=== PATIENT | male | born 1955 | race Caucasian/White ===

== ENCOUNTER → 2016-03-13 | Outpatient (CLI) | payer OTHER | LOC: LAB 09:51 | PROVIDERS: ATTEND Orthopaedic Surgery | DX: Z01.812 Encounter for preprocedural laboratory examination (principal); M16.12 Unilateral primary osteoarthritis, left hip | CPT/HCPCS: 36415; 86850; 86900; 86901 ==

== ENCOUNTER → 2016-03-13 | Outpatient (CLI) | payer OTHER ==
--- NOTE | 2016-03-22 17:01 | DI ---
AP PELVIS and LEFT HIP, 03/13/2016 8:51 AM: Clinical History: Arthritis of the left hip. Previous Exam: None at this facility. There is no soft tissue abnormality. The bony structures of the pelvis are normal. 2 views of the lef t hip show complete obliteration of the joint space along the superior aspect. There is sclerosis on both sides of the joint space. 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 Vascular calcifications are present in the pelvis in a pattern typical for patients who have diabetes. Readin. 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 2. The AP pelvis view is unremarkable.
== END ==
LOC: ORTHO 09:48
PROVIDERS: ATTEND Orthopaedic Surgery
DX: M16.12 Unilateral primary osteoarthritis, left hip (principal)
CPT/HCPCS: 73502

== ENCOUNTER 2016-03-14 05:51 | Inpatient (IN) | payer OTHER ==
[2016-03-14] MEDS ORDERED: ceFAZolin Inj 2gm (Premix) 50 ML IV ONE (05:59)
[2016-03-14] MEDS ORDERED: LIDOCAINE W/ SODIUM BICARB 0.5 ML SYR ONE (05:59)
[2016-03-14] MEDS ORDERED: Lactated Ringers 1,000 ML PRIMARY IV ONE ×2 (06:00→08:38)
[2016-03-14] MEDS ORDERED: Sodium Chloride 0.9% 2,000 ML ONE (06:38)
[2016-03-14] MEDS ORDERED: Sodium Chloride 0.9% 500 ML ONE ×2 (06:38→10:45)
[2016-03-14] MEDS ORDERED: HEPARIN 10,000 UNIT/1 ML ONE (06:46)
[2016-03-14] MEDS ORDERED: Gentamicin Inj 40 MG/ML VIAL ONE (06:46)
[2016-03-14] MEDS ORDERED: TRANEXAMIC ACID 1,000 MG / 10 ML VIAL ONE ×2 (07:16→07:31)
[2016-03-14] MEDS ORDERED: Sodium Chloride 0.9% 200 ML IV ONE (07:16)
[2016-03-14] MEDS ORDERED: Sodium Chloride 0.9% vial 40 ML ONE (07:17)
[2016-03-14] MEDS ORDERED: BUPivacaine Liposome/PF (Exparel) Inj 20ml vial INFIL ONE ×2 (07:17→08:50)
[2016-03-14] MEDS ORDERED: LIDOCAINE MPF 2% - 5 ML (20 MG/1 ML) ONE (07:22)
[2016-03-14] MEDS ORDERED: fentaNYL Inj 250 MCG/5 ML VIAL ONE (07:22)
[2016-03-14] MEDS ORDERED: MIDAZOLAM 5 MG/1 ML ONE (07:22)
[2016-03-14] MEDS ORDERED: ROCURONIUM 10 MG/1 ML - 5 ML VIAL IVP ONE ×2 (07:27→09:08)
[2016-03-14] MEDS ORDERED: Ketorolac Inj 30 MG, Morphine Inj 5 MG, BUPivacaine Inj 0.25% PF 150 MG SPLASH ONE ×3 (07:30)
[2016-03-14] MEDS ORDERED: LIDOCAINE HCL 2 % 10 ML JELLY URO-JECT TOPICAL ONE (08:12)
[2016-03-14] MEDS ORDERED: DEXAMETHASONE SOD PHOSPHATE 4 MG/1 ML VIAL ONE (08:21)
[2016-03-14] MEDS ORDERED: ONDANSETRON 4 MG/2 ML VIAL ONE (08:21)
[2016-03-14] MEDS ORDERED: KETOROLAC 30 MG/1 ML VIAL ONE (08:21)
[2016-03-14] MEDS ORDERED: KETAMINE 100 MG/1 ML - 5 ML ONE (08:22)
[2016-03-14] MEDS ORDERED: HYDROmorphone 2 MG/1 ML ONE (08:22)
[2016-03-14] MEDS ORDERED: PROMETHAZINE 25 MG/1 ML VIAL IM PRN (09:27)
[2016-03-14] MEDS ORDERED: HYDROmorphone 2 MG/1 ML IVP PRN (09:27)
[2016-03-14] MEDS ORDERED: NORMAL SALINE 10 ML SYRINGE FLUSH IVP PRN ×2 (09:27→12:49)
[2016-03-14] MEDS ORDERED: fentaNYL Inj 100 MCG/2 ML VIAL IVP PRN (09:27)
[2016-03-14] MEDS ORDERED: Lactated Ringers 1,000 ML PRIMARY IV SCH (09:30)
[2016-03-14] MEDS ORDERED: MORPHINE SULFATE 2 MG/1 ML IVP PRN (12:49)
[2016-03-14] MEDS ORDERED: ONDANSETRON 4 MG/2 ML VIAL IVP PRN (12:49)
[2016-03-14] MEDS ORDERED: MORPHINE SULFATE 2 MG/1 ML IV PRN (13:15)
[2016-03-14] MEDS ORDERED: MORPHINE SULFATE 10 MG/1 ML IV PRN (13:15)
[2016-03-14] MEDS ORDERED: MORPHINE SULFATE 4 MG/1 ML IV PRN (13:15)
--- NOTE | 2016-03-14 14:17 | CONSULT ---
Consult Note - Consult Consult Date: 03/14/16 Reason for Consult: PostOp Consulation : Ortho Requesting Physician: Dr. Segovia, for postoperative hypertension Primary Care Provider: NONE NONE History and Physical - History of Present Illness Date and Time of Service: 03/14/2016, 1415 Chief Complaint: Left hip pain History of Present Illness: This very pleasant 60-year-old male that has a history of hypertension and is otherwise healthy who has had left hip pain for several years. He has used Celebrex, anti-inflammatories, and Tylenol for her therapy but that has not helped. He opted for a hip replacement today. He's had bilateral knee replacements that helped with pain significantly. He had surgery today, and postoperatively, states that his hip pain is controlled. He states that he does not have any chest pain or shortness breath. His only medical issue is hypertension for which she is on a low-dose of lisinopril daily. He's been on that for about 6 months. He does not smoke or drink large amounts of alcohol. We are asked at this time to watch blood pressures and to address in terms of medications. Past Medical History Medical History: 1. Hypertension Surgical History: 1. Bilateral knee replacements. 2. Elbow bone spur. 3. Left total hip arthroplasty today. Pertinent Family History: No family history of diabetes or coronary artery disease. Past Social History: Does not smoke. Worked mostly for the guard and for the [employer] and is now retired from the . 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 He is . Has 2 children described as healthy. Drinks socially and occasionally Tobacco Use: Never Smoker Substance Use Type: None Alcohol Use: Occasionally Review of Systems - Review of Systems All Systems: Reviewed & No Additional Complaints Except as Stated (I did a 12 point review of systems and it is negative other than the history of present illness.) Medication / Allergies Home Medications: Home Medications Medication Instructions Recorded Confirmed Type Lisinopril 1 tab PO DAILY tab 02/09/16 03/14/16 History Allergies/Adverse Reactions: Allergies Allergy/AdvReac Type Severity Reaction Status Date / Time No Known Allergies Allergy Verified 03/14/16 06:16 Exam - Vitals Vital Signs: Vital Signs Temperature 97.6 F Temperature Source Temporal Artery Scan Pulse Rate [Pulse Oximeter] 79 Pulse Rate 86 Respiratory Rate 17 Blood Pressure [Left Arm] 132/85 Blood Pressure 139/84 Pulse Ox 96 Oxygen Flow Rate 2 Oxygen Delivery Method Nasal Cannula Height 5 ft 6.25 in Weight 210 lb - General General Appearance: POSITIVE: No Acute Distress, Cooperative - Head Head Exam: POSITIVE: Normal Inspection, Normocephalic, Atraumatic - Eye Eye Exam: POSITIVE: No Scleral Icterus - Neck Neck Exam: POSITIVE: Normal Inspection, No Tenderness, No Thyromegaly - Respiratory Respiratory Exam: POSITIVE: Clear to Auscultation - Bilaterally, Breathing Non Labored - Cardiovascular Cardiovascular Exam: POSITIVE: RRR, No Murmur, No Clicks, No Gallops, No Rubs, No JVD - GI/Abdominal GI/Abdominal Exam: POSITIVE: Normal Bowel Sounds, Non Tender, Non Distended, Soft - Rectal Rectal Exam: POSITIVE: Deferred - External Exam: POSITIVE: Deferred Exam: POSITIVE: Deferred, Edge Catheter in Place (Urine appears clear.) - Extremities Extremities Exam: POSITIVE: No Clubbing Present, No Edema Present, No Cyanosis Present Additional Extremities Exam Details: Left hip is dressed, dressing appears clean, dry, intact - Neurological Neurological Exam: POSITIVE: Alert, Oriented x 3, No Facial Droop, Speech Intact / Clear - Psychiatric Psychiatric Exam: POSITIVE: Normal Affect, Normal Mood - Integumentary Integumentary Exam: POSITIVE: Normal Color, Warm, Dry Results - Labs Labs - Last 24 Hours: CBC and a basic metabolic panel are ordered for tomorrow. I do not have access to his preoperative labs at this time. Assessment and Plan - Patient Problems (1) Hypertension Current Visit: Yes Status: Acute Qualifiers: Hypertension type: essential hypertension Qualified Description: Essential hypertension Qualifier Code(s): (I10) Essential (primary) hypertension (2) Status post left hip replacement Current Visit: Yes Status: Acute (3) Osteoarthritis Current Visit: Yes Status: Acute Qualifiers: Osteoarthritis location: hip Osteoarthritis type: primary Laterality: left Qualified Description: Primary osteoarthritis of left hip Qualifier Code(s): (M16.12) Unilateral primary osteoarthritis, left hip - Assessment / Plan Additional Assessment/Plan Details: At this time, I would recommend holding off on lisinopril. The patient's blood pressures are normal at this time. This medicine is known to cause perioperative hypotension and renal failure, and I think if we can hold off on it for a couple of days that would be best. DVT prophylaxis as per orthopedics. PT and OT. Pain control. It'll be our pleasure to follow this patient during his hospital stay and help advise and manage blood pressure.
[2016-03-14] MEDS: ceFAZolin Inj 2gm (Premix) 2 GM in Dextrose 1 BAG IV SCH (15:33)
[2016-03-14] MEDS: HYDROcodone-APAP 7.5 MG-325 MG TABLET PO PRN (15:34)
[2016-03-14] MEDS: Lactated Ringers 1,000 ML PRIMARY IV SCH ×2 (15:35→20:05)
--- NOTE | 2016-03-14 18:11 | ORTHO.PROG ---
Last Taken Vital Signs: Vital Signs - Last Taken Temperature 97.6 F 03/14/16 16:31 Pulse Rate 73 03/14/16 16:31 Respiratory Rate 17 03/14/16 16:31 Blood Pressure 146/90 03/14/16 16:31 Pulse Ox 94 03/14/16 16:31 Subjective: Status post left anterior total hip replacement doing well isn't having really any significant pain but does feel nauseated Objective: Dressings are clean and dry small amount of fluid in the deep drain. Motor and sensory exam is nonfocal. Intake and Output - 8hrs 03/13/16 03/14/16 03/14/16 03/14/16 21:59 05:59 13:59 21:59 Intake: IV 3600 Intake Oral Amount 600 Intake, Blood Product 175 Amount Output: Output, Urinary Catheter 150 Amount Output, Urine Amount 250 Output, Estimated Blood 800 Loss Amount Other: Percent Meal Consumed 25% Weight 95.254 kg Assessment: Status post left anterior total hip replacement doing well Plan: DVT prophylaxis with pneumatics and aspirin Pain control with hydrocodone and morphine Mobilize with physical therapy and occupational therapy tomorrow Likely drain out tomorrow.
--- NOTE | 2016-03-14 18:59 | DI ---
History: Left KOMAL today 4 view study. AP and oblique images of the left hip show proper position of the pelvic prosthetic component embedde d in the acetabulum and a short femoral component extending into the medullary canal. There is no jose dence of fracture. Position of the prosthesis appears satisfactory on images submitted
[2016-03-14] MEDS: ASPIRIN 325 MG EC TABLET PO SCH (20:30)
[2016-03-14] MEDS: DOCUSATE 100 MG CAPSULE PO SCH (20:30)
[2016-03-15] MEDS: ceFAZolin Inj 2gm (Premix) 2 GM in Dextrose 1 BAG IV SCH (00:25)
[2016-03-15 05:20] VITALS: RESP 18
[2016-03-15 05:48] LABS: HEMATOCRIT 38.7 % (42.0-52.0); HEMOGLOBIN 12.9 g/dL (14.0-18.0); MEAN CORPUSCULAR HEMOGLOBIN 29.1 PG (27-31); MEAN CORPUSCULAR HGB CONC 33.3 g/dL (33-37); RDW COEFFICIENT OF VARIATION 13.1 % (11.5-14.5); RED BLOOD COUNT 4.44 10^6/uL (4.70-6.10); WHITE BLOOD COUNT 14.7 10^3/uL (4.8-10.8)
[2016-03-15 05:58] LABS: BLOOD UREA NITROGEN 15 mg/dL (7-22); BUN/CREATININE RATIO 18.75 (6-20); CALCIUM 8.7 mg/dL (8.7-10.7); CHLORIDE 99 meq/L (98-112); CREATININE 0.8 mg/dL (0.70-1.50); EST GLOMERULAR FILTRATION > 60 (>60 ml/min/1.73m(2)); GLUCOSE 138 mg/dL (78-110); POTASSIUM 4.2 meq/L (3.8-5.2); SODIUM 134 meq/L (135-145)
--- NOTE | 2016-03-15 07:52 | ORTHO.PROG ---
Last Taken Vital Signs: Vital Signs - Last Taken Temperature 98.0 F 03/15/16 05:00 Pulse Rate 96 03/15/16 05:00 Respiratory Rate 18 03/15/16 05:00 Blood Pressure 142/77 03/15/16 05:00 Pulse Ox 96 03/15/16 05:00 Subjective: Patient notes he is a little bit more uncomfortable this morning but has not taken any pain medication. Once to know if they might be able to leave today Objective: I dressing is in place suction is applied to his PREVENA dressing. Drain put out 25 mL since surgery this was removed. Motor and sensory exam is nonfocal mild amount of swelling to the side in general compared to the other side but supple. Laboratory Results 03/15/16 Range/Units 05:44 WBC 14.70 H (4.8-10.8) 10^3/uL RBC 4.44 L (4.70-6.10) 10^6/uL Hgb 12.9 L (14.0-18.0) g/dL Hct 38.7 L (42.0-52.0) % MCV 87.2 (80-90) FL MCH 29.1 (27-31) PG MCHC 33.3 (33-37) g/dL RDW Std Deviation 41.0 (39-50) fL RDW Coeff of Armand 13.1 (11.5-14.5) % Plt Count 292 (140-350) 10*3/uL MPV 9.0 (7.4-12.2) FL Sodium 134 L (135-145) meq/L Potassium 4.2 (3.8-5.2) meq/L Chloride 99 (98-112) meq/L Carbon Dioxide 26 (23-33) meq/L Anion Gap 9 (5-20) BUN 15 (7-22) mg/dL Creatinine 0.8 (0.70-1.50) mg/dL Estimated GFR > 60 (>60 ml/min/1.73m(2)) BUN/Creatinine Ratio 18.75 (6-20) Glucose 138 H (78-110) mg/dL Calculated Osmolality 280.0 (267-292) mOsm/kg Calcium 8.7 (8.7-10.7) mg/dL Intake and Output - 8hrs 03/14/16 03/14/16 03/15/16 03/15/16 13:59 21:59 05:59 13:59 Intake: IV 3600 1405 Intake Oral Amount 1200 350 200 Intake, Blood Product 175 Amount Output: Output, Drainage Amount 25 Left Hip 25 Output, Urinary Catheter 150 1900 Amount Output, Urine Amount 250 Output, Estimated Blood 800 Loss Amount Other: Percent Meal Consumed 25% 75% Weight 95.254 kg Assessment: The left anterior total hip replacement overall doing well Plan: Patient will continue with pain control oral and IV as needed he seems to be doing a pretty good job at after therapy and may require some today. We will have him work with physical therapy and occupational therapy today I am not sure if he will be able to be discharged today with changing the dressing in the bed today is not very mobile so suspect that he'll require a little longer than a just a one therapy session. Pneumatics aspirin for DVT prophylaxis.
[2016-03-15] MEDS: HYDROcodone-APAP 7.5 MG-325 MG TABLET PO PRN ×2 (07:57→13:50)
[2016-03-15] MEDS: Lactated Ringers 1,000 ML PRIMARY IV SCH (07:59)
[2016-03-15] MEDS: ASPIRIN 325 MG EC TABLET PO SCH (08:00)
[2016-03-15] MEDS: DOCUSATE 100 MG CAPSULE PO SCH (08:00)
[2016-03-15] MEDS ORDERED: LISINOPRIL 5 MG TABLET PO SCH (09:00)
--- NOTE | 2016-03-15 10:08 | CRNA.PROGR ---
Anesthesia Note Anesthesia Progress Note: Sitting up in the chair visiting with spouse, just returned from PT. Discussed anesthetic course and he has no questions or concerns regarding anesthetic care. Laboratory Results 03/15/16 Range/Units 05:44 WBC 14.70 H (4.8-10.8) 10^3/uL RBC 4.44 L (4.70-6.10) 10^6/uL Hgb 12.9 L (14.0-18.0) g/dL Hct 38.7 L (42.0-52.0) % MCV 87.2 (80-90) FL MCH 29.1 (27-31) PG MCHC 33.3 (33-37) g/dL RDW Std Deviation 41.0 (39-50) fL RDW Coeff of Armand 13.1 (11.5-14.5) % Plt Count 292 (140-350) 10*3/uL MPV 9.0 (7.4-12.2) FL Sodium 134 L (135-145) meq/L Potassium 4.2 (3.8-5.2) meq/L Chloride 99 (98-112) meq/L Carbon Dioxide 26 (23-33) meq/L Anion Gap 9 (5-20) BUN 15 (7-22) mg/dL Creatinine 0.8 (0.70-1.50) mg/dL Estimated GFR > 60 (>60 ml/min/1.73m(2)) BUN/Creatinine Ratio 18.75 (6-20) Glucose 138 H (78-110) mg/dL Calculated Osmolality 280.0 (267-292) mOsm/kg Calcium 8.7 (8.7-10.7) mg/dL Vital Signs (24 hrs) Temp Pulse Pulse Resp BP Pulse Ox 03/15/16 07:50 98.6 F 93 18 144/80 96 03/15/16 07:00 18 03/15/16 05:00 98.0 F 96 18 142/77 96 03/15/16 04:39 93 03/15/16 00:28 98.0 F 90 16 146/86 98 03/14/16 20:58 97.8 F 81 16 150/82 97 03/14/16 19:00 85 16 03/14/16 16:31 97.6 F 73 17 146/90 94 01/10/17 15:00 92 03/14/16 14:30 97.3 F 80 18 133/89 95 03/14/16 14:01 97.6 F 79 17 132/85 96 03/14/16 13:30 97.2 F 87 17 133/90 94 03/14/16 13:15 97 F 76 17 133/86 95 03/14/16 13:00 97 F 79 16 127/92 94 03/14/16 12:52 97.2 F 81 16 146/95 95
--- NOTE | 2016-03-15 12:09 | PT.PROG ---
Progress Note Progress Note: S: pt reports he is doing better today. Pt hip is still sore but improving. Pt [place] in [place]. O: pt brought down to PT by OT. Pt instructed to perform quad sets x 10 w 5 second holds, heel slides x 10 reps, hamstring sets x 10 reps, sliding hip add/ abd x 10 reps, sit to stands x 10 reps, standing weight shifts anterior posterior/ lateral sway. Pt instructed to perform standing marches and calf raises all with 4 point walker. Pt instructed to perform #2 box x 10 reps RLE leading 5 reps LLE leading. Gentle PROM for L hip. pt instructed to ambulate with CGAx 1 with walker he brought from home 4WW and issued a FWW for home for safety. Pt left in room with present and call light within reach and chair alarm. A: pt tolerated therapy well, demo improved functional mobility today. issued a FWW that fits him better. Pt continues to benefit from skilled therapy to meet established goals. P: cont per POC
[2016-03-15 12:56] VITALS: TEMP 98.9
--- NOTE | 2016-03-15 14:51 | DCSUMMARY ---
Hospitalization Summary Admit Date: 03/14/16 Discharge Date: 03/15/16 Primary Diagnosis:: left hip arthritis status post anterior hip replacement Hospital Course: Is a very pleasant 6-year-old male who had long-standing history of left hip arthritis and had an anterior hip replacement performed by Dr. Segovia on the . Please see his notes for further details. In short, the patient did very well postoperatively. It was not clear. Be very mobile but he had 2 sessions with physical therapy today and is actually cleared to go home. The patient would like to go home and states that his pain is well-controlled. His only medical problem is hypertension and he is on a low-dose of lisinopril for this. Lives in [place], [place] and has follow-up artery arranged with Dr. Segovia on March 29. He has a dressing with a drain that will stay in place over the next 2 weeks. He states his pain is well controlled. He is on aspirin for DVT prophylaxis twice a day. He is on hydrocodone for pain. No chest pain complaints today, no shortness breath, no nausea or vomiting. Patient is "ready to go home". Assessment and Plan: 1. As per discharge assessments noted 2. Disposition: Patient is discharged home 3. Condition on discharge, stable and improved. 4. Diet: regular diet 5. Activities: resume normal activities as per physical therapy and orthopedic restrictions 6. Follow-Up: 1. Primary care provider in one week 2. Dr. Segovia on March 29 7. Medications at the Time of Discharge: Home Medications Medication Instructions Recorded Confirmed Type Lisinopril 20 mg PO DAILY 03/14/16 03/14/16 History Aspirin EC 325 mg PO BID #60 tab 03/15/16 Rx Docusate Sodium [Colace] 100 mg PO BID #60 cap 03/15/16 Rx HYDROcodone/APAP 7.5/325 Tab 1 - 2 tab PO Q4H PRN #60 tab 03/15/16 Rx [Odin 7.5/325 Tab] 8. Time, care, counseling and coordination of care for this discharge is greater than 30 minutes. Exam - Vitals Vital Signs: Vital Signs Temperature 98.9 F Temperature Source Temporal Artery Scan Pulse Rate [Apical] 85 Pulse Rate [Pulse Oximeter] 111 Pulse Rate 86 Respiratory Rate 18 Blood Pressure [Left Arm] 133/78 Blood Pressure 139/84 Pulse Ox 94 Oxygen Flow Rate 1 Oxygen Delivery Method Room Air Height 5 ft 6 in Weight 216 lb 9.6 oz - General General Appearance: POSITIVE: No Acute Distress, Cooperative Additional General Exam Details: The patient was on room air on my examination and was saturating above 91%. - Head Head Exam: POSITIVE: Normal Inspection, Normocephalic, Atraumatic - Eye Eye Exam: POSITIVE: No Scleral Icterus - ENT ENT Exam: POSITIVE: Mucous Membranes Moist - Respiratory Respiratory Exam: POSITIVE: Clear to Auscultation - Bilaterally, Breathing Non Labored - Cardiovascular Cardiovascular Exam: POSITIVE: RRR, No Murmur, No Clicks, No Gallops, No Rubs, No JVD - GI/Abdominal GI/Abdominal Exam: POSITIVE: Normal Bowel Sounds, Non Tender, Non Distended, Soft - Extremities Extremities Exam: POSITIVE: No Clubbing Present, No Edema Present, No Cyanosis Present Additional Extremities Exam Details: Dressing in place on left anterior hip incision with drain. Patient was told that that would be in place for the next 2 weeks. It is clean, dry, intact, no drainage noted. Swelling looks decreased in the thigh today. - Neurological Neurological Exam: POSITIVE: Alert, Oriented x 3, No Facial Droop, Speech Intact / Clear - Psychiatric Psychiatric Exam: POSITIVE: Normal Affect, Normal Mood Data Perinent Studies: Laboratory Results 03/15/16 Range/Units 05:44 WBC 14.70 H (4.8-10.8) 10^3/uL RBC 4.44 L (4.70-6.10) 10^6/uL Hgb 12.9 L (14.0-18.0) g/dL Hct 38.7 L (42.0-52.0) % MCV 87.2 (80-90) FL MCH 29.1 (27-31) PG MCHC 33.3 (33-37) g/dL RDW Std Deviation 41.0 (39-50) fL RDW Coeff of Armand 13.1 (11.5-14.5) % Plt Count 292 (140-350) 10*3/uL MPV 9.0 (7.4-12.2) FL Sodium 134 L (135-145) meq/L Potassium 4.2 (3.8-5.2) meq/L Chloride 99 (98-112) meq/L Carbon Dioxide 26 (23-33) meq/L Anion Gap 9 (5-20) BUN 15 (7-22) mg/dL Creatinine 0.8 (0.70-1.50) mg/dL Estimated GFR > 60 (>60 ml/min/1.73m(2)) BUN/Creatinine Ratio 18.75 (6-20) Glucose 138 H (78-110) mg/dL Calculated Osmolality 280.0 (267-292) mOsm/kg Calcium 8.7 (8.7-10.7) mg/dL Procedures: See surgical report by Dr. Segovia Patient Problems - Patient Problem List (1) Status post left hip replacement Current Visit: Yes Status: Acute (2) Osteoarthritis Current Visit: Yes Status: Acute Qualifiers: Osteoarthritis location: hip Osteoarthritis type: primary Laterality: left Qualified Description: Primary osteoarthritis of left hip Qualifier Code(s): (M16.12) Unilateral primary osteoarthritis, left hip (3) Hypertension Current Visit: Yes Status: Acute Qualifiers: Hypertension type: essential hypertension Qualified Description: Essential hypertension Qualifier Code(s): (I10) Essential (primary) hypertension
--- NOTE | 2016-03-16 09:07 | PTI REPORT ---
Thank you for the referral of Bo Stockton. He was seen on 03/14/16 for an inpatient evaluation status post left total hip arthroplasty. SUBJECTIVE: The patient is a 60-year-old male who underwent a left total hip replacement with an anterior approach this morning. The patient reports that he still feels pretty out of it this afternoon. He states that he feels dizzy and lightheaded when sitting up in bed. The patient states that he lives in [place] with his . Prior to surgery he was independent with all ADLs and iADLs. The patient states that he has zero stairs within his home. There are two stairs from his garage into his house. The patient has had right and left total knee replacements back in 2011 and states that he did very well with these replacements. PAST MEDICAL HISTORY: Past medical history can be found in the patient's medical record. OBJECTIVE FINDINGS: General observations: The patient is alert and oriented to setting upon PT arrival. The patient is in bed on two liters of oxygen with IV and Edge in place. The patient does not normally use oxygen at his home. The patient does state that he is very dizzy and lightheaded. Vitals: The patient's blood pressure in supine was 133/89, oxygen saturation was 94%, and his heart rate was 80 beats per minute. Pain: The patient repots a pain level of 0/10 on the verbal analog scale (0=no pain, 10=worst pain) at this time as he is still very numb on the left side. Bed mobility/Transfers/Ambulation: Due to the patient's dizziness and lightheadedness and just generally not feeling well at this time we did not attempt to sit up or to stand up. The patient does have a walker that his is going to bring in later today. We will instruct the patient on how to use the walker tomorrow. ASSESSMENT: The patient has a good prognosis. Problem List: Pain in the left hip Decreased passive and active range of motion in the left hip Decreased strength in the left hip Short-Term Goals: To be met by discharge from inpatient: Patient will be able to transfer from bed to stand independently and safely. Patient will be able to ambulate at least 150 feet with walker, weight-bearing as tolerated on the left. Patient will be able to ascend and descend at least five stairs with walker, weight-bearing as tolerated on the left. Long-Term Goals: To be met following discharge from inpatient: Patient may be seen by outpatient physical therapy. TREATMENT PLAN: Patient will be seen B.I.D during the week and one time per day over the weekend as an inpatient for transfers, gait training, and stair training. INITIAL TREATMENT: Treatment today consisted of the initial evaluation only. OCTAVIANO
--- NOTE | 2016-03-16 09:57 | OTI REPORT ---
Thank you for the referral of Bo Stockton. He was seen on 03/15/16 for an occupational therapy inpatient evaluation status post left total hip arthroplasty. SUBJECTIVE: The patient is a 60-year-old male who is being seen today secondary to having a left total hip arthroplasty. Prior to admission the patient lived at home with his in [place]. He was independent with all activities of daily living and functional tasks including driving and heavier type activities. PAST MEDICAL HISTORY: Past medical history can be found in the patient's medical record. OBJECTIVE FINDINGS: Activities of daily living: The patient was able to dress self with just slight assistance without use of adaptive equipment. Transfers: The patient was able to come from sit to stand with contact guard assist. He completed a functional toilet transfer with contact guard assist and was able to stand for five minutes at a time with contact guard assist at sink to complete hygiene activities. ASSESSMENT: At this time the patient is doing very well. He was issued a shower chair as he does need this for his shower. Overall the patient did very well. TREATMENT PLAN: At this time the patient will be discharged from occupational therapy. If there are concerns, we will gladly continue to see the patient. INITIAL TREATMENT: Treatment today consisted of the initial evaluation followed by the patient being educated on his hip precautions. The patient was very open to precautions and adapting home to remove throw rugs. The patient's was present during today's session and agreed to do this. Both were instructed in home safety with use of a walker. We worked on dressing activities; the patient needed min assist but was not interested in adaptive equipment today. We will see how he does tomorrow and if needed, we will issue equipment. OCTAVIANO
--- NOTE | 2016-03-16 10:55 | PT PM DAY ---
Diagnosis : Left Total Hip Arthroplasty PM - Physical Therapy S: The patient reports he is ready to go home. Per Dr. Barnard and Dr. Magallanes, once cleared from therapy, the patient is able to go home. The patient was cleared by nursing prior to therapy. O: The patient was instructed to ambulate all the way down to the therapy gym, approximately 200 feet with contact guard assist for safety. He required cues for decreased speed of activity with front wheeled walker. The patient received an application of moist heat pack x20 minutes including set up to the left hip. The patient was instructed on heel slides x10, quad sets x10, hip abduction/adduction without straight leg raise, standing balance, weight shifts forward, backward, and side to side, standing marching with walker, standing heel lifts, and toe raises with the walker. The patient was instructed to perform a flight of stairs with proper technique and walker. The patient required moderate cues at first, diminishing to minimal cues post treatment session. It is recommended having at home during stairs and ambulation for the first couple of days. The patient was instructed in HEP. The patient was returned to his chair and left in room with call light within reach. Nursing was notified that the patient was cleared to go home. A: The patient has met all therapy goals at this time. P: Patient will be discharged from PT. [facility]
== END 2016-03-15 15:38 | disposition home or self-care (01) | DRG 470 ==
LOC: OPS 05:51 → MED/SURG 10:53
PROVIDERS: ADMIT Orthopaedic Surgery; ATTEND Orthopaedic Surgery
PROC: 0SRB03Z Replacement of Left Hip Joint with Ceramic Synthetic Substitute, Open Approach (ICD-10-PCS; principal; 2016-03-14 08:00)
DX: M16.12 Unilateral primary osteoarthritis, left hip (principal); I10 Essential (primary) hypertension
CPT/HCPCS: 36415; 73502; 76001; 80048; 85027; 94150; 94761; 97010; 97110; 97116; 97530; A4216; J0690; J1100; J1170; J1580; J1644; J1885; J2001; J2250; J2270; J2405; J3010; J7030; J7040; J7050; J7120; S0020